=== PATIENT | female | born 1985 | race Caucasian/White ===

== ENCOUNTER 2018-10-31 19:46 | Outpatient (CLI) | payer OTHER ==
[~2018-10-31] VITALS: Ht 154.9 cm; Wt 88.2 kg
[2018-10-31 19:49] VITALS: Ht 154.9 cm; Wt 88.2 kg
[2018-10-31 19:54] VITALS: BP 115/56; PULSE 88; RESP 18
[2018-10-31] MEDS ORDERED: FER325 PO (20:12)
[2018-10-31] MEDS ORDERED: PREN-93 PO (20:12)
[2018-10-31] MEDS ORDERED: ACETAMINOPHEN 1000MG/100ML IV 100 ML IVPB ONE (20:30)
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
== END 2018-10-31 22:23 | disposition home or self-care (01) ==
LOC: L-D 19:46 → OBT 19:46
PROVIDERS: ATTEND Specialist
DX: O26.892 Other specified pregnancy related conditions, second trimester (principal); R10.9 Unspecified abdominal pain; O60.02 Preterm labor without delivery, second trimester; Z3A.23 23 weeks gestation of pregnancy
CPT/HCPCS: 76815; 81001; J0131; Z7500; G0463